=== PATIENT | female | born 1950 | race Caucasian/White ===

== ENCOUNTER 2021-10-14 14:03 | Outpatient (CLI) | payer OTHER | END 2021-10-14 14:04 | disposition home or self-care (01) | LOC: CSHMAMMO 14:03 | PROVIDERS: ATTEND Family Medicine | DX: Z12.31 Encounter for screening mammogram for malignant neoplasm of breast (principal); N63.10 Unspecified lump in the right breast, unspecified quadrant; N63.20 Unspecified lump in the left breast, unspecified quadrant | CPT/HCPCS: 77063; 77067 ==

== ENCOUNTER 2021-10-21 09:06 | Outpatient (CLI) | payer OTHER | END 2021-10-21 09:07 | disposition home or self-care (01) | LOC: CSHMAMMO 09:06 | PROVIDERS: ATTEND Family Medicine | DX: N63.10 Unspecified lump in the right breast, unspecified quadrant (principal); N63.20 Unspecified lump in the left breast, unspecified quadrant | CPT/HCPCS: 77066; G0279 ==

== ENCOUNTER 2024-05-01 14:14 | Outpatient (CLI) | payer OTHER | END 2024-05-01 14:15 | disposition home or self-care (01) | LOC: CSHULT 14:14 | PROVIDERS: ATTEND Family Medicine | DX: R60.0 Localized edema (principal); L03.116 Cellulitis of left lower limb | CPT/HCPCS: 76999 ==